=== PATIENT | female | born 1985 | race Caucasian/White ===

== ENCOUNTER 2019-03-25 08:36 | Emergency (ER) | payer MEDICARE, MEDICAID ==
[~2019-03-25] VITALS: Ht 162.6 cm; Wt 78.7 kg
[~2019-03-25 08:36] MED LIST: DOCU-28 PO; HYDR25SU32 RC
[2019-03-25 08:41] VITALS: BP 116/70
[2019-03-25] MEDS ORDERED: CEPH-572 PO (09:06)
[2019-03-25] MEDS ORDERED: SULF1TAB49 PO (09:06)
== END 2019-03-25 09:43 | disposition home or self-care (01) ==
LOC: ER 08:36
DX: L02.416 Cutaneous abscess of left lower limb (principal); G89.29 Other chronic pain; F12.90 Cannabis use, unspecified, uncomplicated; Z79.2 Long term (current) use of antibiotics; Z79.899 Other long term (current) drug therapy
CPT/HCPCS: 99283

== ENCOUNTER 2019-06-22 08:43 | Day surgery (SDC) | payer MEDICARE, MEDICAID ==
[~2019-06-22] VITALS: Ht 162.6 cm; Wt 81.6 kg
[2019-06-22] VITALS (7 sets, daily range): BP systolic 104–142; BP diastolic 51–87
[~2019-06-22 08:43] MED LIST changes: +cefazolin/dext.iso 2gm/50ml 50 ML IV ONE; +famotidine 20mg tablet PO ONE; +ringers solution, lacted 1,000 ML IV SCH
[2019-06-22] MEDS ORDERED: ringers solution, lacted 1,000 ML IV SCH (09:54)
[2019-06-22] MEDS ORDERED: proCHLORperazine 10 MG/2 ml inj IV PRN (09:55)
[2019-06-22] MEDS ORDERED: meperidine/PF 25mg/ml syringe IV PRN ×2 (09:55)
[2019-06-22] MEDS ORDERED: morphine 4 MG/ML inj SYRINge IV PRN ×2 (09:55)
[2019-06-22] MEDS ORDERED: ondansetron/PF 4mg/2ml inj IV PRN (09:55)
[2019-06-22 10:17] LABS: BASOPHILS % (AUTO) 0.6 % (0-1); EOSINOPHILS # (AUTO) 0.1 X10'3 (0-0.9); EOSINOPHILS % (AUTO) 1.1 % (0-6); LYMPHOCYTES % (AUTO) 28.9 % (21-51); MEAN CORPUSCULAR HEMOGLOBIN 30.5 PG (27.0-31.0); MEAN CORPUSCULAR HGB CONC 34.1 g/dL (33.0-36.5); MEAN CORPUSCULAR VOLUME 89.4 FL (78-98); MEAN PLATELET VOLUME 7.3 FL (7.4-10.4); MONOCYTES # (AUTO) 0.4 X10'3 (0-0.9); MONOCYTES % (AUTO) 5.3 % (2-12); NEUTROPHILS # (AUTO) 4.5 X10'3 (1.8-7.7); NEUTROPHILS % (AUTO) 64.1 % (42-75); PRE OP HEMOGLOBIN 15.3 g/dL (12.0-16.0); PRE OP PLATELET COUNT 366 X10'3 (140-440); RED BLOOD COUNT 5.04 X10'6 (4.20-5.60); RED CELL DISTRIBUTION WIDTH 13.2 % (11.5-14.5)
[2019-06-22] MEDS ORDERED: NAPR-996 PO (10:35)
[2019-06-22] MEDS ORDERED: BACL10TA PO (10:35)
[2019-06-22] MEDS ORDERED: OMEP20TA23 PO (10:35)
[2019-06-22 10:43] LABS: HCG SERUM QL NEGATIVE
[2019-06-22] MEDS ORDERED: methylene blue (5mg/ml) 50mg/10ml ampul IV ONE (11:48)
[2019-06-22] MEDS ORDERED: BUPIVAcaine/PF 2.5 mg/ml (0.25%) 30ml vial ONE (11:48)
[2019-06-22] MEDS ORDERED: povidone-iodine 10% topical ointment 28.4gm TP ONE (11:49)
[2019-06-22] MEDS ORDERED: ondansetron/PF 4mg/2ml inj ONE (12:06)
[2019-06-22] MEDS ORDERED: glycopyrrolate 0.2mg/ml inj ONE (12:06)
[2019-06-22] MEDS ORDERED: sevoflurane 250ml liquid IH ONE (12:06)
[2019-06-22] MEDS ORDERED: neostigmine methylsulfate 1 MG/ML 10ml vial ONE (12:06)
[2019-06-22] MEDS ORDERED: fentaNYL/PF 50MCG/1 ML 2ML syringe ONE (12:13)
[2019-06-22] MEDS ORDERED: midazolam 2 mg/2 ml injection ONE (12:13)
[2019-06-22] MEDS ORDERED: LIDOcaine 2% (20mg/ml) 5ml vial ONE (12:15)
[2019-06-22] MEDS ORDERED: propofol inj 20 ML IV ONE (12:15)
[2019-06-22] MEDS ORDERED: rocuronium 10mg/ml inj IV ONE (12:18)
[2019-06-22] MEDS ORDERED: dexamethasone sod phosphate 4mg/ml inj. ONE (12:18)
[2019-06-22] MEDS ORDERED: ketorolac trometh. 30mg/ml inj. ONE (13:15)
--- NOTE | 2019-06-22 13:20 | NUR ---
Received from OR via , accompanied by Anesthesiologist DR LE and report given by Anesthesiolgist. AWAKENS TO VOICE. VITALS STABLE. DRESSING DI. RICK PAIN.
[2019-06-22] MEDS: meperidine/PF 25mg/ml syringe IV PRN ×2 (13:33→13:42)
[2019-06-22] MEDS ORDERED: acetaminophen w/codeine (30MG) #3 tablet PO PRN (14:15)
--- NOTE | 2019-06-22 14:20 | NUR ---
AWAKE AND ORIENTED. VITALS STABLE. DRESSING DI. RICK PAIN. HOME WITH HER SPOUSE AT THIS TIME.
== END 2019-06-22 14:20 | disposition home or self-care (01) ==
LOC: PAS 08:43
PROVIDERS: ATTEND Surgery
DX: L05.01 Pilonidal cyst with abscess (principal); G43.909 Migraine, unspecified, not intractable, without status migrainosus; G89.29 Other chronic pain; F17.210 Nicotine dependence, cigarettes, uncomplicated; Z79.899 Other long term (current) drug therapy; Z88.8 Allergy status to other drugs, medicaments and biological substances
CPT/HCPCS: 11771; 36415; 82948; 84703; 85025; J1100; J1885; J2001; J2175; J2250; J2405; J2704; J2710; J3010; J3490; J3590; Q9968; 88304; A4215; A4618; A6258; A6449; A7000; J7120

== ENCOUNTER 2019-09-24 07:50 | Outpatient (CLI) | payer MEDICARE, MEDICAID ==
[~2019-09-24 07:50] MED LIST changes: +BACL10TA PO; -DOCU-28 PO; -HYDR25SU32 RC; +NAPR-996 PO; +OMEP20TA23 PO; -cefazolin/dext.iso 2gm/50ml 50 ML IV ONE; -famotidine 20mg tablet PO ONE; -ringers solution, lacted 1,000 ML IV SCH
[2019-09-24] MEDS ORDERED: LIDOcaine 2% 5ml jelly ONE (10:14)
== END 2019-09-24 09:49 | disposition home or self-care (01) ==
LOC: WOUND CARE 07:50 → EDSTATUS 08:00 → WOUND CARE 09:49
PROVIDERS: ATTEND Surgery
DX: T81.89XA Other complications of procedures, not elsewhere classified, initial encounter (principal); G43.909 Migraine, unspecified, not intractable, without status migrainosus; K21.9 Gastro-esophageal reflux disease without esophagitis; M19.90 Unspecified osteoarthritis, unspecified site; L05.01 Pilonidal cyst with abscess; G89.29 Other chronic pain; F17.210 Nicotine dependence, cigarettes, uncomplicated; Z79.899 Other long term (current) drug therapy; Y92.89 Other specified places as the place of occurrence of the external cause; Y83.8 Other surgical procedures as the cause of abnormal reaction of the patient, or of later complication, without mention of misadventure at the time of the procedure
CPT/HCPCS: G0463

== ENCOUNTER 2021-06-13 00:49 | Inpatient (IN) | payer MEDICARE, MEDICAID ==
[~2021-06-13] VITALS: Ht 170.2 cm; Wt 81.3 kg
[2021-06-13] MEDS ORDERED: LORazepam 2 mg/ml vial IV ONE (01:00)
[2021-06-13 01:26] LABS: BASOPHILS # (AUTO) 0.1 X10'3 (0-0.2); BASOPHILS % (AUTO) 0.3 % (0-1); EOSINOPHILS # (AUTO) 0.3 X10'3 (0-0.9); EOSINOPHILS % (AUTO) 1.6 % (0-6); HEMATOCRIT 45.1 % (35.0-45.0); HEMOGLOBIN 15.1 g/dl (12.0-16.0); LYMPHOCYTES # (AUTO) 3.4 X10'3 (1.1-4.8); LYMPHOCYTES % (AUTO) 18.5 % (21-51); MEAN CORPUSCULAR HEMOGLOBIN 29.7 PG (27.0-31.0); MEAN CORPUSCULAR HGB CONC 33.5 g/dL (33.0-36.5); MEAN CORPUSCULAR VOLUME 88.8 FL (78-98); MEAN PLATELET VOLUME 7.1 FL (7.4-10.4); MONOCYTES # (AUTO) 0.9 X10'3 (0-0.9); MONOCYTES % (AUTO) 4.7 % (2-12); NEUTROPHILS # (AUTO) 13.9 X10'3 (1.8-7.7); NEUTROPHILS % (AUTO) 74.9 % (42-75); PLATELET COUNT 384 X10'3 (140-440); RED BLOOD COUNT 5.08 X10'6 (4.20-5.60); RED CELL DISTRIBUTION WIDTH 13.6 % (11.5-14.5); WHITE BLOOD COUNT 18.6 X10'3 (4.5-11.0)
[2021-06-13 01:42] LABS: ALANINE AMINOTRANSFERASE 41 U/L (12-78); ALBUMIN 4.1 G/DL (3.4-5.0); ALBUMIN/GLOBULIN RATIO 1.1 (1.1-1.5); ALKALINE PHOSPHATASE 99 IU/L (46-116); ANION GAP 11 (8-16); ASPARTATE AMINO TRANSFERASE 19 U/L (10-37); BILIRUBIN,TOTAL 0.3 MG/DL (0.1-1.0); BLOOD UREA NITROGEN 17 MG/DL (7-18); BUN/CREATININE RATIO 20.2 (6.6-38.0); CALCIUM 8.9 MG/DL (8.5-10.1); CHLORIDE 103 MMOL/L (99-107); CREATININE 0.84 MG/DL (0.40-0.90); GLUCOSE 150 MG/DL (70-104); POTASSIUM 3.6 MMOL/L (3.5-5.1); SODIUM 139 MMOL/L (135-145); TOTAL CARBON DIOXIDE 25.1 MMOL/L (24-32); TOTAL PROTEIN 7.9 G/DL (6.4-8.2); eGFR 77 ML/MIN
[2021-06-13 01:45] LABS: BILIRUBIN,DIRECT 0.1 MG/DL (0-0.3); LIPASE 108 U/L (73-393)
[2021-06-13] MEDS ORDERED: aspirin 325mg tablet PO ONE (01:50)
[2021-06-13] MEDS ORDERED: heparin 10,000 units/1 ML INJ IV ONE ×2 (01:55→02:00)
[2021-06-13] MEDS ORDERED: heparin 25,000 UNIT/250ml bag 250 ML IV SCH (01:55)
[2021-06-13] MEDS ORDERED: heparin 10,000 units/1 ML INJ IV PRN (01:55)
[2021-06-13 02:21] LABS: PARTIAL THROMBOPLASTIN TIME 25 SECONDS (22-32)
[2021-06-13] MEDS ORDERED: HYDROcodone/acetaminophen 5mg/325mg tablet PO PRN (02:45)
[2021-06-13] MEDS ORDERED: HYDROcodone/acetaminophen 10/325mg tab PO PRN (02:45)
[2021-06-13] MEDS ORDERED: potassium Cl 40MEQ/1/2NS 520ml 520 ML IV PRN ×2 (02:45)
[2021-06-13] MEDS ORDERED: acetaminophen 325mg tablet PO PRN ×2 (02:45)
[2021-06-13] MEDS ORDERED: magnesium 2GM in 50ml NS 50 ML IV PRN (02:45)
[2021-06-13] MEDS ORDERED: magnesium 4gm in 100ml NS 100 ML IV PRN (02:45)
[2021-06-13] MEDS ORDERED: potassium Cl 20 mEq SR tablet PO PRN ×2 (02:45)
[2021-06-13] MEDS ORDERED: ondansetron/PF 4mg/2ml inj IV PRN ×2 (02:45→06:15)
[2021-06-13] MEDS ORDERED: magnesium Cl slow-release 64mg tablet PO PRN (02:45)
[2021-06-13] MEDS ORDERED: mag hydrox/Alum hydrox/simeth 30ml oral suspension PO PRN (02:45)
[2021-06-13] MEDS ORDERED: normal saline 1000ml 1,000 ML IV SCH ×2 (02:45→06:15)
[2021-06-13] MEDS ORDERED: morphine 2 MG/ML inj. syringe IV PRN ×2 (02:45)
[2021-06-13] MEDS ORDERED: VANCOmycin 1250MG/NS 250ml Bag 250 ML IV SCH (03:00)
[2021-06-13 03:42] LABS: D-DIMER 0.37 MG/L FEU (0-0.50)
[2021-06-13] MEDS: pantoprazole 40mg Tablet.DR PO SCH ×3 (04:04→20:01)
[2021-06-13] MEDS: piperacillin/tazo 3.375gm/50ml 50 ML IV SCH ×3 (04:10→17:20)
[2021-06-13] MEDS ORDERED: fentaNYL/PF 50MCG/1 ML 2ML syringe ONE (04:45)
[2021-06-13] MEDS ORDERED: midazolam 1 mg/ML 2ml injection ONE (04:45)
[2021-06-13] MEDS ORDERED: iohexol 350MG/ML 100ml bottle IV ONE (04:46)
[2021-06-13] MEDS ORDERED: LIDOcaine 1% (10mg/ml)w/preservative injection 20ml MDV ONE (04:46)
[2021-06-13] MEDS ORDERED: nitroGLYCERIN-Tridil 50MG/D5W 250 ML IV ONE (04:46)
[2021-06-13] MEDS ORDERED: iohexol 350 MG/ML 50ML vial IV ONE (04:46)
[2021-06-13] MEDS ORDERED: metoprolol tartrate 1mg/ml inj IV ONE (05:40)
--- NOTE | 2021-06-13 05:45 | NUR ---
PATIENT ARRIVED FROM CUTTING INSPECTOR VIA GURNEY. PATIENT IS A&O X4, RIGHT GROIN SITE IS CDI WITH NO HEMATOMA. EDUCATE PATIENT ON NOT MOVING LEG. I HAVE ASSUMED CARE OF PATIENT.
[2021-06-13 06:00] VITALS: BP 119/62
[2021-06-13] MEDS ORDERED: nitroGLYCERIN 0.4mg SUBLingual tab SL PRN (06:15)
[2021-06-13] MEDS ORDERED: OXAZEpam 15mg capsule PO PRN (06:15)
[2021-06-13] MEDS ORDERED: proCHLORperazine 10 MG/2 ml inj IV PRN (06:15)
[2021-06-13 06:18] LABS: CLARITY,URINE CLEAR (Clear); COLOR,URINE STRAW (Yellow); GLUCOSE, URINE NEGATIVE (Neg); KETONES,URINE NEGATIVE (Neg); NITRITES, URINE NEGATIVE (Neg); OCCULT BLOOD,URINE NEGATIVE (Neg); PROTEIN,URINE NEGATIVE (Neg); UA COLLECTION TYPE CLN CATCH MIDSTREAM; UROBILINOGEN,URINE 0.2 E.U/dL (0.2-1.0)
[2021-06-13 06:19] LABS: LEUKOCYTE ESTERASE ,URINE NEGATIVE (Neg)
[2021-06-13 06:36] LABS: URINE AMPHETAMINE SCREEN NEGATIVE (Neg); URINE BARBITUATE SCREEN NEGATIVE (Neg); URINE BENZODIAZEPINES SCREEN NEGATIVE (Neg); URINE CANNABINOID SCREEN POSITIVE (Neg); URINE COCAINE SCREEN NEGATIVE (Neg); URINE METHADONE SCREEN NEGATIVE (Neg); URINE OPIATE SCREEN NEGATIVE (Neg); URINE PHENCYCLIDINE SCREEN NEGATIVE (Neg)
[2021-06-13 07:31] LABS: URINE HCG NEGATIVE (NEG)
[2021-06-13] MEDS: K and/or MAG REPLACEMENT MC SCH ×2 (08:00→19:14)
[2021-06-13] MEDS ORDERED: heparin, porcine 5000 units/ml vial SQ SCH (08:00)
[2021-06-13] MEDS ORDERED: PERFLUTREN PROTEIN-A MICROSPHR (Optison) 0.22 MG/ML 3ML VIAL IV ONE (08:00)
[2021-06-13] MEDS: clopidogrel 75mg tablet PO SCH (08:43)
[2021-06-13] MEDS: metoprolol tartrate 25mg tablet PO SCH ×2 (08:44→20:01)
[2021-06-13] MEDS ORDERED: vancomycin/NS 1 GM ADD-VANTAGE 250 ML IV SCH (09:00)
[2021-06-13 11:22] LABS: BASOPHILS % (AUTO) 0.4 % (0-1); EOSINOPHILS # (AUTO) 0.2 X10'3 (0-0.9); EOSINOPHILS % (AUTO) 1.3 % (0-6); HEMATOCRIT 41.3 % (35.0-45.0); HEMOGLOBIN 13.9 g/dl (12.0-16.0); LYMPHOCYTES # (AUTO) 2.6 X10'3 (1.1-4.8); LYMPHOCYTES % (AUTO) 20.2 % (21-51); MEAN CORPUSCULAR HEMOGLOBIN 29.8 PG (27.0-31.0); MEAN CORPUSCULAR HGB CONC 33.7 g/dL (33.0-36.5); MEAN CORPUSCULAR VOLUME 88.3 FL (78-98); MEAN PLATELET VOLUME 7.8 FL (7.4-10.4); MONOCYTES # (AUTO) 0.9 X10'3 (0-0.9); MONOCYTES % (AUTO) 7.2 % (2-12); NEUTROPHILS # (AUTO) 9.2 X10'3 (1.8-7.7); NEUTROPHILS % (AUTO) 70.9 % (42-75); PLATELET COUNT 338 X10'3 (140-440); RED BLOOD COUNT 4.67 X10'6 (4.20-5.60); RED CELL DISTRIBUTION WIDTH 13.7 % (11.5-14.5); WHITE BLOOD COUNT 12.9 X10'3 (4.5-11.0)
[2021-06-13] MEDS ORDERED: nicotine 21mg patch - 24 hr TD ONE (12:45)
[2021-06-13 15:00] VITALS: BP 139/81
[2021-06-13 18:00] VITALS: BP 126/73
--- NOTE | 2021-06-13 18:10 | NUR ---
RECIEVED REPORT AND HAVE ASSUMED CARE OF THE PATIENT. PATIENT IS RESTING IN BED TALKING ON HER CELL PHONE.
[2021-06-13] MEDS ORDERED: temazepam 15mg capsule PO PRN (21:00)
[2021-06-13 22:00] VITALS: BP 117/79
[2021-06-14 02:00] VITALS: BP 118/70
[2021-06-14 06:00] VITALS: BP 117/76
--- NOTE | 2021-06-14 06:20 | NUR ---
Patient in room PCU 3024. I have received report from Tigist FLAHERTY and had the opportunity to ask questions and assume patient care.
[2021-06-14] MEDS: clopidogrel 75mg tablet PO SCH (07:41)
[2021-06-14 07:42] VITALS: BP_SYST 120
[2021-06-14] MEDS: metoprolol tartrate 25mg tablet PO SCH (07:42)
[2021-06-14] MEDS: pantoprazole 40mg Tablet.DR PO SCH (07:43)
[2021-06-14] MEDS: lactobacillus rhamnosus 10,000 MMU CELLS/CAPSULE PO SCH ×2 (07:43→08:00)
[2021-06-14] MEDS: K and/or MAG REPLACEMENT MC SCH (08:00)
[2021-06-14] MEDS ORDERED: nicotine 21mg patch - 24 hr TD SCH (08:00)
[2021-06-14] MEDS ORDERED: VANCOMYCIN LEVEL IV ONE (08:30)
[2021-06-14 09:09] LABS: HEMOGLOBIN 14.3 g/dl (12.0-16.0); LYMPHOCYTES # (AUTO) 1.9 X10'3 (1.1-4.8); MONOCYTES # (AUTO) 0.6 X10'3 (0-0.9)
[2021-06-14 09:10] LABS: BASOPHILS % (AUTO) 0.3 % (0-1); EOSINOPHILS # (AUTO) 0.1 X10'3 (0-0.9); EOSINOPHILS % (AUTO) 1.4 % (0-6); HEMATOCRIT 41.8 % (35.0-45.0); LYMPHOCYTES % (AUTO) 19.4 % (21-51); MEAN CORPUSCULAR HEMOGLOBIN 30.2 PG (27.0-31.0); MEAN CORPUSCULAR HGB CONC 34.2 g/dL (33.0-36.5); MEAN CORPUSCULAR VOLUME 88.1 FL (78-98); MEAN PLATELET VOLUME 7.5 FL (7.4-10.4); MONOCYTES % (AUTO) 6.4 % (2-12); NEUTROPHILS % (AUTO) 72.5 % (42-75); PLATELET COUNT 334 X10'3 (140-440); RED BLOOD COUNT 4.75 X10'6 (4.20-5.60); RED CELL DISTRIBUTION WIDTH 13.5 % (11.5-14.5); WHITE BLOOD COUNT 9.6 X10'3 (4.5-11.0)
[2021-06-14 09:49] LABS: ALANINE AMINOTRANSFERASE 39 U/L (12-78); ALBUMIN 3.4 G/DL (3.4-5.0); ALBUMIN/GLOBULIN RATIO 0.9 (1.1-1.5); ALKALINE PHOSPHATASE 85 IU/L (46-116); ANION GAP 10 (8-16); ASPARTATE AMINO TRANSFERASE 48 U/L (10-37); BILIRUBIN,TOTAL 0.5 MG/DL (0.1-1.0); BLOOD UREA NITROGEN 9 MG/DL (7-18); BUN/CREATININE RATIO 12.5 (6.6-38.0); CALCIUM 8.6 MG/DL (8.5-10.1); CHLORIDE 107 MMOL/L (99-107); CHOL/HDL RATIO 4.8 (0.00-4.99); CHOLESTEROL 189 MG/DL (0-200); CREATININE 0.72 MG/DL (0.40-0.90); GLUCOSE 135 MG/DL (70-104); HDL CHOLESTEROL 39 MG/DL (35-60); LDL CHOLESTEROL 141 MG/DL (50-100); POTASSIUM 4.1 MMOL/L (3.5-5.1); SODIUM 141 MMOL/L (135-145); TOTAL CARBON DIOXIDE 24.1 MMOL/L (24-32); TOTAL PROTEIN 7.2 G/DL (6.4-8.2); TRIGLYCERIDES 47 MG/DL (20-135); eGFR > 90 ML/MIN
[2021-06-14] MEDS ORDERED: CLOP75TA34 PO (10:18)
[2021-06-14] MEDS ORDERED: LOP25T PO (10:18)
[2021-06-14] MEDS ORDERED: NICO-731 TD (10:18)
[2021-06-14] MEDS ORDERED: NITR0.4T51 SL (10:18)
[2021-06-14] MEDS ORDERED: ATOR20TA66 PO (10:18)
--- NOTE | 2021-06-14 11:20 | NUR ---
Pt DC'd home with family. Pt alert and oriented and vitals WNL. Per Dr. Gallo; Pt is stable for DC. IV removed, canula intact. Tele-box removed and returned to tele-tech. DC paperwork printed out and gone over with Pt. Allowed Pt to ask questions concerning DC and then answered them. New prescriptions sent to [facility] on [address]. Pt stated that she will make follow up with her PCP at [facility]. Pt's belongings gathered and sent with Pt. Pt wheeled down to lobby via wheelchair and left in private vehicle with family for home.
== END 2021-06-14 11:18 | disposition home or self-care (01) | DRG 281 ==
LOC: ER 00:50 → ED HOLD 02:51 → PCU 3S 05:45
PROVIDERS: ADMIT Internal Medicine; ATTEND Family Medicine
PROC: 4A023N7 Measurement of Cardiac Sampling and Pressure, Left Heart, Percutaneous Approach (ICD-10-PCS; principal; 2021-06-13)
PROC: B2111ZZ Fluoroscopy of Multiple Coronary Arteries using Low Osmolar Contrast (ICD-10-PCS; 2021-06-13)
PROC: B2151ZZ Fluoroscopy of Left Heart using Low Osmolar Contrast (ICD-10-PCS; 2021-06-13)
PROC: B41F1ZZ Fluoroscopy of Right Lower Extremity Arteries using Low Osmolar Contrast (ICD-10-PCS; 2021-06-13)
DX: I21.4 Non-ST elevation (NSTEMI) myocardial infarction (principal); I51.81 Takotsubo syndrome; K21.9 Gastro-esophageal reflux disease without esophagitis; R73.9 Hyperglycemia, unspecified; F12.90 Cannabis use, unspecified, uncomplicated; E78.5 Hyperlipidemia, unspecified; M79.602 Pain in left arm; F17.210 Nicotine dependence, cigarettes, uncomplicated; D72.823 Leukemoid reaction; M54.50 Low back pain, unspecified; Z20.822 Contact with and (suspected) exposure to COVID-19; G89.29 Other chronic pain; M47.9 Spondylosis, unspecified; Z79.02 Long term (current) use of antithrombotics/antiplatelets; Z79.899 Other long term (current) drug therapy; Z71.6 Tobacco abuse counseling
CPT/HCPCS: 36415; 71045; 80048; 80053; 80061; 80076; 80305; 81003; 81025; 83605; 83690; 83735; 84145; 84484; 85025; 85379; 85610; 85730; 87040; 87081; 87635; 93005; 93306; 93458; 96365; 99152; 99291; A6258; C1760; C1769; G0378; J0780; J1644; J2001; J2060; J2250; J2405; J2543; J3010; J3370; J3490; J7030; Q9967

== ENCOUNTER 2022-03-22 03:25 | Emergency (ER) | payer MEDICARE, MEDICAID ==
[~2022-03-22] VITALS: Ht 162.6 cm; Wt 77.0 kg
[~2022-03-22 03:25] MED LIST changes: +ATOR20TA66 PO; +CLOP75TA34 PO; +LOP25T PO; +NICO-731 TD; +NITR0.4T51 SL
[2022-03-22] MEDS ORDERED: ondansetron/PF 4mg/2ml inj IV ONE (04:55)
[2022-03-22 04:58] LABS: APTT 22 SECONDS (22-32)
[2022-03-22 05:07] LABS: LIPASE < 50 U/L (73-393); MAGNESIUM 1.7 MG/DL (1.5-2.4)
[2022-03-22 06:14] LABS: URINE HCG NEGATIVE (NEG)
[2022-03-22 06:24] LABS: ALANINE AMINOTRANSFERASE 34 U/L (12-78); ALBUMIN 4.2 G/DL (3.4-5.0); ALBUMIN/GLOBULIN RATIO 1.1 (1.1-1.5); ALKALINE PHOSPHATASE 91 IU/L (46-116); ANION GAP 12 (8-16); ASPARTATE AMINO TRANSFERASE 21 U/L (10-37); BILIRUBIN,TOTAL 0.2 MG/DL (0.1-1.0); BLOOD UREA NITROGEN 13 MG/DL (7-18); BUN/CREATININE RATIO 22.8 (6.6-38.0); CALCIUM 8.8 MG/DL (8.5-10.1); CHLORIDE 104 MMOL/L (99-107); CREATININE 0.57 MG/DL (0.40-0.90); GLUCOSE 100 MG/DL (70-104); SODIUM 140 MMOL/L (135-145); TOTAL CARBON DIOXIDE 24.4 MMOL/L (24-32); TOTAL PROTEIN 8.1 G/DL (6.4-8.2); eGFR > 90 ML/MIN
[2022-03-22 06:25] LABS: POTASSIUM 4.2 MMOL/L (3.5-5.1)
[2022-03-22 06:26] LABS: BASOPHILS # (AUTO) 0.1 X10'3 (0-0.2); BASOPHILS % (AUTO) 0.5 % (0-1); EOSINOPHILS % (AUTO) 0.2 % (0-6); HEMATOCRIT 45.1 % (35.0-45.0); HEMOGLOBIN 15.3 g/dl (12.0-16.0); LYMPHOCYTES # (AUTO) 1.9 X10'3 (1.1-4.8); LYMPHOCYTES % (AUTO) 14.8 % (21-51); MEAN CORPUSCULAR HEMOGLOBIN 29.7 PG (27.0-31.0); MEAN CORPUSCULAR HGB CONC 33.9 g/dL (33.0-36.5); MEAN CORPUSCULAR VOLUME 87.5 FL (78-98); MEAN PLATELET VOLUME 7.7 FL (7.4-10.4); MONOCYTES # (AUTO) 0.6 X10'3 (0-0.9); MONOCYTES % (AUTO) 4.8 % (2-12); NEUTROPHILS # (AUTO) 10.4 X10'3 (1.8-7.7); NEUTROPHILS % (AUTO) 79.7 % (42-75); PLATELET COUNT 359 X10'3 (140-440); RED BLOOD COUNT 5.15 X10'6 (4.20-5.60); RED CELL DISTRIBUTION WIDTH 13.6 % (11.5-14.5)
[2022-03-22 06:44] LABS: CLARITY,URINE TURBID (Clear); COLOR,URINE YELLOW (Yellow); GLUCOSE, URINE NEGATIVE (Neg); KETONES,URINE NEGATIVE (Neg); LEUKOCYTE ESTERASE ,URINE NEGATIVE (Neg); OCCULT BLOOD,URINE TRACE-INTACT (Neg); PROTEIN,URINE NEGATIVE (Neg); UROBILINOGEN,URINE 0.2 E.U/dL (0.2-1.0)
[2022-03-22 06:49] LABS: UA COLLECTION TYPE CLN CATCH MIDSTREAM
[2022-03-22 06:52] LABS: AMORPHOUS URATES 3+; NITRITES, URINE NEGATIVE (Neg)
[2022-03-22 06:53] LABS: BACTERIA,URINE 2+ /HPF (Neg); MUCUS STRANDS MANY /LPF (Neg); RBC,URINE 0-2 /HPF (0-2); SQUAMOUS EPITHELIAL CELL,UR MANY /LPF (FEW); WBC,URINE 0-4 /HPF (0-4)
[2022-03-22 08:19] VITALS: BP 118/77
== END 2022-03-22 08:15 | disposition home or self-care (01) ==
LOC: ER 03:25
DX: R07.9 Chest pain, unspecified (principal); R11.0 Nausea; G89.29 Other chronic pain; M54.9 Dorsalgia, unspecified
CPT/HCPCS: 36415; 71045; 80053; 81001; 81025; 83690; 83735; 83880; 84484; 85025; 85610; 85730; 93005; 96374; 99285; J2405

== ENCOUNTER 2023-10-11 08:59 | Emergency (ER) | payer MEDICARE, MEDICAID ==
[~2023-10-11] VITALS: Ht 162.6 cm; Wt 77.3 kg
[2023-10-11 09:22] VITALS: BP 123/86; PULSE 78; TEMP 97.8; O2SAT 97
[2023-10-11] MEDS ORDERED: PRED20TA PO (11:20)
[2023-10-11] MEDS ORDERED: ALBU8HFA INH (11:20)
[2023-10-11] MEDS ORDERED: PROM118S5 PO (11:20)
[2023-10-11] MEDS: dexamethasone sod phosphate 10mg/ml inj PO STA (11:30)
[2023-10-11 11:31] VITALS: RESP 18
[2023-10-11] MEDS: ketorolac trometh inj. 60 MG/2 ML VIAL IM ONE (11:31)
== END 2023-10-11 11:50 | disposition home or self-care (01) ==
LOC: ER 09:00
DX: J06.9 Acute upper respiratory infection, unspecified (principal)
CPT/HCPCS: 71045; 96372; 99283; J1100; J1885